=== PATIENT | female | born 1995 | race Caucasian/White ===

== ENCOUNTER 2016-05-30 02:20 | Emergency (ER) | payer OTHER ==
[2016-05-30] MEDS ORDERED: Ondansetron INJ* 2 MG/ML VIAL IV ONE (02:56)
[2016-05-30] MEDS ORDERED: NS 0.9% 1000 ML* 1,000 ML IV ONE (02:56)
[2016-05-30] MEDS ORDERED: Morphine INJ* 4 MG/ML 1 ML CARPUJECT IV ONE (02:56)
[2016-05-30 03:08] LABS: Hematocrit 45 % (35-47); Hemoglobin 15.2 g/dl (12.0-16.0); Mean Corpuscular HGB Conc 34 g/dl (31-36); Mean Corpuscular Hemoglobin 28 pg (27-31); Mean Corpuscular Volume 84 fL (80-97); Mean Platelet Volume 9 um3 (7.4-10.4); Red Blood Count 5.38 10^6/ul (4.0-5.4); Red Cell Distribution Width 13 % (10.5-15); White Blood Count 12.1 10^3/ul (3.5-10.8)
[2016-05-30 03:20] LABS: ALT 13 U/L (7-52); AST 15 U/L (13-39); Albumin 4.3 g/dL (3.2-5.2); Alkaline Phosphatase 39 U/L (34-104); Anion Gap 9 mmol/L (2-11); BUN/Creatinine Ratio 16.4 (8-20); Blood Urea Nitrogen 12 mg/dL (6-24); CO2 Carbon Dioxide 26 mmol/L (22-32); Calcium 9.5 mg/dL (8.6-10.3); Chloride 101 mmol/L (101-111); EGFR African American 128.2 (>60); EGFR Non-African American 99.7 (>60); Globulin 3.2 g/dL (2-4); Glucose 104 mg/dL (70-100); Lipase < 10 U/L (11.0-82.0); Potassium 3.2 mmol/L (3.5-5.0); Sodium 136 mmol/L (133-145); Total Protein 7.5 g/dL (6.4-8.9)
[2016-05-30] MEDS ORDERED: HYDROmorphone INJ* 1 MG/ML CARPUJECT SYRINGE IV SLOW PU ONE (04:21)
[2016-05-30 04:49] LABS: Urine Bacteria Absent (Absent); Urine Bilirubin Negative (Negative); Urine Glucose Negative (Negative); Urine Nitrite Negative (Negative)
[2016-05-30] MEDS ORDERED: Iohexol 300* (CONTRAST) 10 ML SDV IV ONE (05:22)
[2016-05-30] MEDS ORDERED: Pantoprazole TAB (NF) 40 MG TAB PO ONE (05:57)
[2016-05-30] MEDS ORDERED: Potassium Chlor TAB* 20 MEQ TAB.ER PO ONE (05:58)
[2016-05-30] MEDS ORDERED: Pantoprazole IV* 40 MG ONE (06:13)
[2016-05-30] MEDS ORDERED: Pantoprazole IV* 40 MG IV ONE (06:19)
--- NOTE | 2016-05-30 06:20 | ED ---
Zhen Sparks Claudia, scribed for Terrell Bryanuel on 05/30/16 at 0301 . Abdominal Pain/Female - HPI Summary HPI Summary: 20 YEAR OLD FEMALE PRESENTS TO THE ED WITH EPIGASTRIUM PAIN THAT RADIATED TO HER CHEST. PT NOTES THAT THE SUDDEN ONSET OF SHARP/BURNING PAIN WOKE HER UP AND STARTED ABOUT 2 HOURS AGO. SHE DENIES ANY FEVER, DIARRHEA OR VOMITING BUT ADMITS TO ASSOCIATED SX OF NAUSEA. PT NOTES THE PAIN IS CURRENTLY A 8-9/10. PT NOTES SHE STILL HAS HER GALLBLADDER AND APPENDIX. SHE NOTES THAT SHE HAS NEVER HAD ANY SIMILAR SX IN THE PAST. - History of Current Complaint Chief Complaint: EDChestPainROMI Stated Complaint: CHEST PAIN Time Seen by Provider: 05/30/16 02:36 Hx Obtained From: Patient Onset/Duration: Lasting Hours, Still Present Timing: Constant Pain Intensity: 7 Pain Scale Used: 0-10 Numeric Location: Epigastric Radiates to: Chest Aggravating Factor(s): Nothing Alleviating Factor(s): Nothing Associated Signs and Symptoms: Positive: Nausea. Negative: Fever, Vomiting, Diarrhea Allergies/Adverse Reactions: Allergies Allergy/AdvReac Type Severity Reaction Status Date / Time No Known Allergies Allergy Verified 12/29/15 12:31 PMH/Surg Hx/FS Hx/Imm Hx Previously Healthy: Yes Endocrine/Hematology History: Denies: Hx Diabetes Cardiovascular History: Denies: Hx Hypertension, Hx Pacemaker/ICD History: Denies: Hx Renal Disease Sensory History: Denies: Hx Hearing Aid Psychiatric History: Denies: Hx Panic Disorder Infectious Disease History: No Infectious Disease History: Denies: Traveled Outside the [place] in Last 30 Days - Family History Known Family History: Negative: Hypertension, Diabetes - Social History Occupation: Student Lives: With Family Alcohol Use: Weekly Substance Use Type: Reports: None Smoking Status (MU): Never Smoked Tobacco Review of Systems Constitutional: Negative Negative: Fever Eyes: Negative ENT: Negative Cardiovascular: Negative Respiratory: Negative Positive: Abdominal Pain, Nausea. Negative: Vomiting, Diarrhea Genitourinary: Negative Musculoskeletal: Negative Skin: Negative Neurological: Negative Psychological: Normal All Other Systems Reviewed And Are Negative: Yes Physical Exam Triage Information Reviewed: Yes Vital Signs On Initial Exam: Initial Vitals Temp Pulse Resp BP Pulse Ox 98.4 F 117 20 138/83 100 05/30/16 02:23 05/30/16 02:23 05/30/16 02:23 05/30/16 02:23 05/30/16 02:23 Vital Signs Reviewed: Yes Appearance: Positive: Well-Appearing, No Pain Distress Skin: Positive: Warm, Skin Color Reflects Adequate Perfusion, Dry Head/Face: Positive: Normal Head/Face Inspection Eyes: Positive: EOMI, CHERIE ENT: Positive: Normal ENT inspection Neck: Positive: Supple, Nontender Respiratory/Lung Sounds: Positive: Clear to Auscultation, Breath Sounds Present Cardiovascular: Positive: RRR, Pulses are Symmetrical in both Upper and Lower Extremities Abdomen Description: Positive: Soft. Negative: Nontender - TENDER AT THE EPIGASTRIUM Musculoskeletal: Positive: Normal, Strength/ROM Intact Neurological: Positive: Normal, Sensory/Motor Intact, Alert, Oriented to Person Place, Time - [place] Coma Scale Coma Scale Total: 15 Diagnostics - Vital Signs Vital Signs Temp Pulse Resp BP Pulse Ox 05/30/16 02:34 17 99 05/30/16 02:33 127/90 05/30/16 02:23 98.4 F 117 20 138/83 100 - Laboratory Lab Results: Lab Results 05/30/16 05/30/16 05/30/16 Range/Units 02:45 02:45 04:30 WBC 12.1 H (3.5-10.8) 10^3/ul RBC 5.38 (4.0-5.4) 10^6/ul Hgb 15.2 (12.0-16.0) g/dl Hct 45 (35-47) % MCV 84 (80-97) fL MCH 28 (27-31) pg MCHC 34 (31-36) g/dl RDW 13 (10.5-15) % Plt Count 260 (150-450) 10^3/ul MPV 9 (7.4-10.4) um3 Neut % (Auto) 69.3 (38-83) % Lymph % (Auto) 23.7 L (25-47) % [place] % (Auto) 4.3 (1-9) % Eos % (Auto) 1.8 (0-6) % Baso % (Auto) 0.9 (0-2) % Absolute Neuts (auto) 8.4 H (1.5-7.7) 10^3/ul Absolute Lymphs (auto) 2.9 (1.0-4.8) 10^3/ul Absolute Monos (auto) 0.5 (0-0.8) 10^3/ul Absolute Eos (auto) 0.2 (0-0.6) 10^3/ul Absolute Basos (auto) 0.1 (0-0.2) 10^3/ul Absolute Nucleated RBC 0 10^3/ul Nucleated RBC % 0 Sodium 136 (133-145) mmol/L Potassium 3.2 L (3.5-5.0) mmol/L Chloride 101 (101-111) mmol/L Carbon Dioxide 26 (22-32) mmol/L Anion Gap 9 (2-11) mmol/L BUN 12 (6-24) mg/dL Creatinine 0.73 (0.51-0.95) mg/dL Est GFR ( Amer) 128.2 (>60) Est GFR (Non-Af Amer) 99.7 (>60) BUN/Creatinine Ratio 16.4 (8-20) Glucose 104 H (70-100) mg/dL Calcium 9.5 (8.6-10.3) mg/dL Total Bilirubin 0.40 (0.2-1.0) mg/dL AST 15 (13-39) U/L ALT 13 (7-52) U/L Alkaline Phosphatase 39 (34-104) U/L Troponin I 0.00 (<0.04) ng/mL Total Protein 7.5 (6.4-8.9) g/dL Albumin 4.3 (3.2-5.2) g/dL Globulin 3.2 (2-4) g/dL Albumin/Globulin Ratio 1.3 (1-3) Lipase < 10 L (11.0-82.0) U/L Beta HCG, Quant < 0.60 mIU/mL Urine Color Yellow Urine Appearance Cloudy Urine pH 5.0 (5-9) Ur Specific [place] 1.031 H (1.010-1.030) Urine Protein Negative (Negative) Urine Ketones Trace H (Negative) Urine Blood 3+ H (Negative) Urine Nitrate Negative (Negative) Urine Bilirubin Negative (Negative) Urine Urobilinogen Negative (Negative) Ur Leukocyte Esterase Negative (Negative) Urine WBC (Auto) Trace(0-5/hpf) (Absent) Urine RBC (Auto) 1+(3-5/hpf) H (Absent) Ur Squamous Epith Cells Present H (Absent) Urine Bacteria Absent (Absent) Hyaline Casts Present H (Absent) Urine Glucose Negative (Negative) Result Diagrams: 05/30/16 02:45 05/30/16 02:45 Lab Statement: Any lab studies that have been ordered have been reviewed, and results considered in the medical decision making process. - Radiology CXR Xray Interpretation: No Acute Changes Radiology Interpretation Completed By: ED Physician - CT ABD/PELVIS CT CT Interpretation: Positive (See Comments) - THERE IS NO BOWEL OBSTRUCTION, FREE AIR OR FREE FLUID. NEGATIVE FOR DIVERTICULITIS OR COLITIS. NORMAL APPENDIZ IS VISUALIZED. THERE IS ABUNDANT FLUID IN THE AND FLUID FILLED LOOPS OF SMALL BOWEL. THIS COULD BE PART OF GENERALIZED GASTROENTERITIS. NORMAL KIDNEYS URINARY TRACTS AND URINARY BLADDER. I CANNOT IDENTIFY THE LIVER LESION THAT IS SEEN ON THE US. IT IS POSSIBLE THAT THE LESION IS BLEDNING IN WITH THE LIVER PARENCHYMA. MRI MAY BE NECESSARY TO CHARACTERIZE. SPLEEN UPPER LIMITS OF NORMAL. NORMAL PANCREAS. NORMAL ADRENAL GLANDS. NORMAL GALLBLADDER. ON THE US , THE BILIARY TREE IS SLIGHTLY DIALATED BUT NO SOURCE OF OBSTRUCTION CAN BE IDENTIFIED.T CT Interpretation Completed By: Radiologist - Ultrasound No standard instances Ultrasound Interpretation: Positive (See Comments) - NORMAL GALLBLADDER. NO GALLBLADDER WALL THICKENING OR PERICHOLECYSTIC FLUID. NO GALLSTONES. THE COMMON BILE DUCT IS SLIGHTLY DIALATED AT APPROX 7.6MM. CORRLEATE WITH ENYMES TO HELP RULE OUT EARLY BILARY OBSTRUCTION. NO DETECTABLE PANRCREATIC ABNORMALITIES. DETAIL IS OBSCURED BY BOWEL GAS. THERE IS SLIGHTLY HYPOECHOIC MASS OF THE LEFT LOBE OF THE LIVER MEASURING 4.9CM X 3.5CM X4 CM. LESION HAS SOME VASCULARITY TO IT. FURTHER EVALUATION WILL BE NECESSARY TO CHARACTERIZE(E.G. ADENOMA VERSUS FOCAL NODULAR HYPERPLASIA VERSUS OTHER LESION). THE REAMINDER OF THAT LIVER IS NORMAL. NORMAL RIGHT KIDNEY. Ultrasound Interpretation Completed By: Radiologist - EKG 4:10 Cardiac Rate: NL EKG Rhythm: Sinus Rhythm - 80 BEATS/MIN EKG Interpretation: NO ACUTE CHANGES Abdominal Pain Fem Course/Dx - Course Course Of Treatment: A/P: AFTER GALLBALDDER US AND CT ABD/PELVIS THERE IS A QUESTIONABLE LIVER LESION BUT AFTER DISCUSSING WITH DR. TRACY AND PT THE PT PREFERS TO FOLLOW-UP WITH GASTRO AN OUTPATIENT AND IS THERFORE IMPORVED AND IS AGREEABLE WITH THE D/C HOME AND FOLLOW-UP WITH PCP AND GASTRO. - Diagnoses Provider Diagnoses: Common bile duct dilatation, Abdominal pain - Provider Notifications Discussed Care Of Patient With: DISCUSSED CARE OF PT WITH DR. TRACY Time Discussed With Above Provider: 05:59 Discharge - Discharge Plan Condition: Stable Disposition: HOME Prescriptions: Pantoprazole TAB (NF) [Protonix TAB (NF)] 40 mg PO DAILY #30 tab Patient Education Materials: Abdominal Pain (ED), Gastroenteritis (ED) Referrals: [facility] [Primary Care Provider] - 3 Days (FOLLOW UP WITH A PRIMARY CARE PROVIDER ) Drake Kitchen MD [Medical Doctor] - 3 Days The documentation as recorded by the Zhen evans Claudia accurately reflects the service I personally performed and the decisions made by , Sagar Bryan.
[2016-05-30 06:37] VITALS: BP 107/68
--- NOTE | 2016-05-30 07:56 | RAD ---
HISTORY: Chest pains COMPARISONS: R 70 2014 VIEWS: 2: Frontal and lateral views of the chest. FINDINGS: CARDIOMEDIASTINAL SILHOUETTE: The cardiomediastinal silhouette is normal. YOSSI: The yossi are normal. PLEURA: The costophrenic angles are sharp. No pleural abnormalities are noted. LUNG PARENCHYMA: The lungs are clear. ABDOMEN: The upper abdomen is clear. There is no subphrenic gas. BONES AND SOFT TISSUES: No bone or soft tissue abnormalities are noted. OTHER: None. IMPRESSION: NO ACTIVE CARDIOPULMONARY DISEASE.
--- NOTE | 2016-05-30 08:05 | RAD ---
INDICATION: Abdominal pain COMPARISON: None TECHNIQUE: Axial source images were obtained from the hemidiaphragms to the symphysis pubis following administration of intravenous contrast. 81 mL Omnipaque 300 was utilized. Lack of oral contrast limits evaluation of the bowel. Coronal and sagittal reconstructed images were acquired. Lung bases: The lung bases are clear. Liver: The liver is normal in size. There are no masses. There is no ductal dilatation. Gallbladder: There are no calcified gallstones. There is no evidence of wall thickening or pericholecystic fluid. Spleen: The spleen is normal in size. There are no masses. Pancreas: There is no focal pancreatic mass or ductal dilatation. Adrenal glands: There is no evidence of adrenal mass. Kidneys: The kidneys are normal in size and position. There are prompt nephrograms and there is prompt excretion bilaterally. There are no renal parenchymal masses. There is no evidence of nephrolithiasis. Adenopathy: There is no evidence of adenopathy by size criteria. Fluid collections: There are no free or localized fluid collections. Vessels:There are no significant atherosclerotic changes involving the aorta. There is no focal aneurysm. The iliac vessels are normal in caliber. The IVC appears normal. GI tract: No recent bowel is limited as there is no oral contrast. There are fluid-filled loops of large and small bowel perhaps related to an ileus/enteritis. There are no findings to suggest obstruction. The appendix appears normal. Pelvic organs: The uterus and adnexa appear normal Bladder: There are no bladder masses. Abdominal and pelvic soft tissues: The extraperitoneal abdominal and pelvic soft tissues appear normal.. Osseous structures: There are no acute osseous findings. Other: None IMPRESSION: Fluid-filled loops of large and small bowel may relate to enteritis/ileus. Normal appendix. No mass or inflammatory change.
--- NOTE | 2016-05-30 08:06 | RAD ---
HISTORY: Epigastric pain COMPARISONS: Same day CT of the abdomen and pelvis TECHNIQUE: Multiple transverse and longitudinal ultrasound images were obtained of the right upper quadrant. FINDINGS: LIVER: The liver is normal in size measuring 17.1 cm and greatest cephalocaudal dimension. In the inferior aspect of the right lobe of the liver there is what appears to be a well-circumscribed hypoechoic mass measuring 4.9 x 3.5 x 4 cm exhibiting a similar vascular signal as the more normal-appearing liver. Normal hepatic and portal venous blood flow is duplicated with color flow imaging. There is no gross intrahepatic biliary duct dilatation. GALLBLADDER AND EXTRAHEPATIC BILIARY DUCT: The gallbladder is normal in appearance without intraluminal stones or other soft tissue masses. There is no pericholecystic fluid or gallbladder wall thickening. The common bile duct measures a maximum diameter of 7 mm. PANCREAS: The portions of the pancreas not obscured by bowel gas are normal in appearance. RIGHT KIDNEY: The right kidney is normal in size, morphology and echogenicity. AORTA AND IVC: The visualized portions are normal in appearance and not pathologically dilated. IMPRESSION: 1. THE COMMON BILE DUCT MEASURES A MAXIMUM DIAMETER A 7 MM WHICH IS ENLARGED FOR A WOMAN OF THIS AGE. 2. ALONG THE INFERIOR MARGIN OF THE RIGHT LOBE OF THE LIVER THERE IS A HYPOECHOIC WELL-CIRCUMSCRIBED MASS WITH A MAXIMUM DIMENSION OF 4.9 CM. A BENIGN ETIOLOGY IS FAVORED SUCH FOCAL FATTY INFILTRATION, ADENOMA OR FNH, BUT MORE SINISTER ETIOLOGIES ARE NOT EXCLUDED ON THIS ULTRASOUND EXAMINATION. CONTRAST-ENHANCED MRI OF THE LIVER WILL LIKELY PROVIDE SUPERIOR CHARACTERIZATION.
== END 2016-05-30 06:37 | disposition home or self-care (01) ==
LOC: ED 02:20
DX: K83.8 Other specified diseases of biliary tract (principal); R07.9 Chest pain, unspecified; R10.13 Epigastric pain
CPT/HCPCS: 36415; 71020; 74177; 76705; 80053; 81003; 81015; 83690; 84484; 84702; 85025; 93005; 96361; 96374; 96375; 99284; A9270-GY; J1170; J2270; J2405; Q9967

== ENCOUNTER 2016-05-30 14:37 | Emergency (ER) | payer OTHER ==
[2016-05-30] MEDS ORDERED: Ondansetron INJ* 2 MG/ML VIAL IV ONE (15:44)
[2016-05-30] MEDS ORDERED: NS 0.9% 1000 ML* 2,000 ML IV ONE (15:44)
[2016-05-30] MEDS ORDERED: Morphine INJ* 2 MG/ML 1 ML CARPUJECT IV ONE (16:53)
[2016-05-30 16:54] LABS: Hematocrit 46 % (35-47); Hemoglobin 15.3 g/dl (12.0-16.0); Mean Corpuscular HGB Conc 33 g/dl (31-36); Mean Corpuscular Hemoglobin 28 pg (27-31); Mean Corpuscular Volume 85 fL (80-97); Mean Platelet Volume 9 um3 (7.4-10.4); Red Blood Count 5.41 10^6/ul (4.0-5.4); Red Cell Distribution Width 13 % (10.5-15); White Blood Count 7.1 10^3/ul (3.5-10.8)
[2016-05-30 17:09] LABS: Albumin 3.8 g/dL (3.2-5.2); BUN/Creatinine Ratio 15.4 (8-20); C Reactive Protein 46.89 mg/L (< 5.00); Calcium 8.9 mg/dL (8.6-10.3); EGFR African American 118.8 (>60); EGFR Non-African American 92.4 (>60); Globulin 3.1 g/dL (2-4); Potassium 3.8 mmol/L (3.5-5.0); Total Bilirubin 0.6 mg/dL (0.2-1.0); Total Protein 6.9 g/dL (6.4-8.9)
[2016-05-30 19:50] VITALS: BP 106/68
--- NOTE | 2016-05-30 19:53 | ED ---
Influenza-Like Illness - HPI Summary HPI Summary: Patient arrives to ED with CC of N/V/D and epigastric pain x 15 hours which was sudden in onset and awoke her from sleep. She was seen in the ED early this morning for pain, but denies N/V/D at the time. Now presents with worsening symptoms. At previous encounter, CT and GB US were ordered which showed liver lesion which was considered to be benign and fluid filled loops in the small intestine most consistent with ileus or gastroenteritis. She was given morphine and pepcid and began to feel better prior to discharge. Now, she arrives 12 hours later with N/V/D and constant pain which was only relieved while in the ED, but restarted after arrival home. She notes 1 episode of vomiting a few hours ago, watery diarrhea x 2 a few hours ago and constant nausea. She also notes the pain is epigastric and radiates to under the ribs bilaterally Denies ALEXANDER or fever. Labs were WNL. UA normal. No chance of . Patient is scheduled for a follow up with Dr Brandan BAR on Friday in [facility]. - History of Current Complaint Chief Complaint: EDFluSymptoms Time Seen by Provider: 05/30/16 16:29 Hx Obtained From: Patient Onset/Duration: Sudden Onset Severity: Moderate Associated Signs & Symptoms: F/C, Myalgia, Vomiting, Diarrhea Related Hx: Possible Flu/Infectious Exposure - Allergy/Home Medications Allergies/Adverse Reactions: Allergies Allergy/AdvReac Type Severity Reaction Status Date / Time No Known Allergies Allergy Verified 12/29/15 12:31 PMH/Surg Hx/FS Hx/Imm Hx Previously Healthy: Yes Endocrine/Hematology History: Denies: Hx Diabetes Cardiovascular History: Denies: Hx Hypertension, Hx Pacemaker/ICD History: Denies: Hx Dialysis, Hx Renal Disease Sensory History: Denies: Hx Hearing Aid Psychiatric History: Denies: Hx Panic Disorder Infectious Disease History: No Infectious Disease History: Denies: Traveled Outside the [place] in Last 30 Days - Family History Known Family History: Negative: Hypertension, Diabetes - Social History Occupation: Student Lives: With Family Alcohol Use: Weekly Hx Substance Use: No Substance Use Type: Reports: None Hx Tobacco Use: No Smoking Status (MU): Never Smoked Tobacco Do You Chew or Dip Tobacco: No Have You Chewed or Dipped Tobacco in the LAST YEAR: No Have You Smoked in the Last Year: No Review of Systems Positive: Fatigue, Skin Diaphoresis Eyes: Negative ENT: Negative Positive: Shortness Of Breath Positive: Abdominal Pain, Vomiting, Diarrhea, Nausea Positive: no symptoms reported Musculoskeletal: Negative Skin: Negative Positive: Weakness Positive: Anxious All Other Systems Reviewed And Are Negative: Yes Physical Exam Triage Information Reviewed: Yes Vital Signs On Initial Exam: Initial Vitals Temp Pulse Resp BP Pulse Ox 97.7 F 123 20 115/73 98 05/30/16 14:39 05/30/16 14:39 05/30/16 14:39 05/30/16 14:39 05/30/16 14:39 Vital Signs Reviewed: Yes Appearance: Positive: Well-Appearing, No Pain Distress, Well-Nourished Skin: Positive: Warm, Skin Color Reflects Adequate Perfusion Head/Face: Positive: Normal Head/Face Inspection Eyes: Positive: Normal, EOMI, CHERIE, Conjunctiva Clear ENT: Positive: Pharynx normal, TMs normal Neck: Positive: Supple, Nontender, No Lymphadenopathy Respiratory/Lung Sounds: Positive: Clear to Auscultation, Breath Sounds Present Cardiovascular: Positive: Normal, RRR, Pulses are Symmetrical in both Upper and Lower Extremities Abdomen Description: Positive: Nontender, No Organomegaly, Soft, Other: - no tenderness on palpation Bowel Sounds: Positive: Present Musculoskeletal: Positive: Normal, Strength/ROM Intact Neurological: Positive: Normal, Sensory/Motor Intact, Alert, Oriented to Person Place, Time, Speech Normal Psychiatric: Positive: Normal - [place] Coma Scale Coma Scale Total: 15 Diagnostics - Vital Signs Vital Signs Temp Pulse Resp BP Pulse Ox 05/30/16 17:01 20 05/30/16 15:44 99.2 F 112 18 140/72 100 05/30/16 14:39 97.7 F 123 20 115/73 98 - Laboratory Lab Results: Lab Results 05/30/16 05/30/16 05/30/16 Range/Units 16:11 16:40 16:40 WBC 7.1 (3.5-10.8) 10^3/ul RBC 5.41 H (4.0-5.4) 10^6/ul Hgb 15.3 (12.0-16.0) g/dl Hct 46 (35-47) % MCV 85 (80-97) fL MCH 28 (27-31) pg MCHC 33 (31-36) g/dl RDW 13 (10.5-15) % Plt Count 198 (150-450) 10^3/ul MPV 9 (7.4-10.4) um3 Neut % (Auto) 87.8 H (38-83) % Lymph % (Auto) 8.0 L (25-47) % [place] % (Auto) 4.0 (1-9) % Eos % (Auto) 0.1 (0-6) % Baso % (Auto) 0.1 (0-2) % Absolute Neuts (auto) 6.3 (1.5-7.7) 10^3/ul Absolute Lymphs (auto) 0.6 L (1.0-4.8) 10^3/ul Absolute Monos (auto) 0.3 (0-0.8) 10^3/ul Absolute Eos (auto) 0 (0-0.6) 10^3/ul Absolute Basos (auto) 0 (0-0.2) 10^3/ul Absolute Nucleated RBC 0 10^3/ul Nucleated RBC % 0 Sodium 135 (133-145) mmol/L Potassium 3.8 (3.5-5.0) mmol/L Chloride 103 (101-111) mmol/L Carbon Dioxide 26 (22-32) mmol/L Anion Gap 6 (2-11) mmol/L BUN 12 (6-24) mg/dL Creatinine 0.78 (0.51-0.95) mg/dL Est GFR ( Amer) 118.8 (>60) Est GFR (Non-Af Amer) 92.4 (>60) BUN/Creatinine Ratio 15.4 (8-20) Glucose 113 H (70-100) mg/dL Calcium 8.9 (8.6-10.3) mg/dL Total Bilirubin 0.60 (0.2-1.0) mg/dL AST 15 (13-39) U/L ALT 10 (7-52) U/L Alkaline Phosphatase 33 L (34-104) U/L C-Reactive Protein 46.89 H (< 5.00) mg/L Total Protein 6.9 (6.4-8.9) g/dL Albumin 3.8 (3.2-5.2) g/dL Globulin 3.1 (2-4) g/dL Albumin/Globulin Ratio 1.2 (1-3) Influenza A (Rapid) Negative (Negative) Influenza B (Rapid) Negative (Negative) Result Diagrams: 05/30/16 16:40 05/30/16 16:40 Lab Statement: Any lab studies that have been ordered have been reviewed, and results considered in the medical decision making process. Flu Symptom Course/Dx - Course Course Of Treatment: Patient returns to ED within 12 hours of discharge with worsening pain and nausea, now with diarrhea and vomiting. Was given fluids and zofran. CT, CXR, US, labs and EKG done on previous visit this AM.. Labs drawn and WNL. Patient feeling improved after zofran. Able to tolerate clear liquid diet. Patient sent home with rx for zofran and follow up with Dr. Brandan BAR at [facility]. Patient given copies of CT, US and Xray for records. Patient agrees with plan and will return to ED for worsening pain or nausea not controlled with zofran. Assessment/Plan: Follow up with Dr. Brandan BARRIOS in [facility] - Diagnoses Differential Diagnosis/HQI/PQRI: Positive: Influenza, Pneumonia Provider Diagnoses: Gastroenteritis Discharge - Discharge Plan Condition: Stable Disposition: HOME Prescriptions: Ondansetron ODT TAB* [Zofran Odt TAB*] 4 mg PO Q6H PRN #10 tab.odt MDD 4 PRN Reason: Nausea Patient Education Materials: Gastroenteritis (ED) Referrals: [facility] [Primary Care Provider] - Additional Instructions: Take zofran as needed for nausea. Follow up with GI tommorow. Maalox or other over the counter heartburn medication may help with any discomfort after vomiting. You may now begin to eat a bland diet. If symptoms worsen or fail to improve, you have intractable pain or nausea not controlled with zofran, please come back to ED. If you are having episodes of vomiting, you may become dehydrated. Drink plenty of fluids. If you feel you cannot keep enough fluids down, you may supplement with drinks like Gatorade or V8 juice. This will help balance your electrolytes which are lost during dehydration. Take any medication prescribed to you as directed. Zofran: This medicine may make you dizzy. Do not drive or do anything else that could be dangerous until you know how this medicine affects you.
== END 2016-05-30 19:45 | disposition home or self-care (01) ==
LOC: ED 14:37
DX: K52.9 Noninfective gastroenteritis and colitis, unspecified (principal); R10.13 Epigastric pain; R11.2 Nausea with vomiting, unspecified; R19.7 Diarrhea, unspecified; R06.02 Shortness of breath; R53.1 Weakness; F41.9 Anxiety disorder, unspecified
CPT/HCPCS: 36415; 80053; 85025; 86140; 87502; 96374; 96375; 99283; J2270; J2405